=== PATIENT | male | born 1965 | race Caucasian/White ===

== ENCOUNTER 2018-02-07 05:29 | Inpatient (IN) | payer OTHER ==
[2018-01-25 16:10] LABS: BASOPHILS % (AUTO) 1.4 % (0.0-2.0); EOSINOPHILS % (AUTO) 1.9 % (0.0-3.0); HEMATOCRIT 45.5 % (42.0-52.0); HEMOGLOBIN 15.7 G/DL (14.2-18.0); LYMPHOCYTES % (AUTO) 35.4 % (20.0-45.0); MEAN CORPUSCULAR VOLUME 87 FL (80-99); MONOCYTES % (AUTO) 8.7 % (1.0-10.0); NEUTROPHILS % (AUTO) 52.6 % (45.0-75.0); PLATELET COUNT 231 K/UL (150-450); RED BLOOD COUNT 5.21 M/UL (4.70-6.10); RED CELL DISTRIBUTION WIDTH 11.6 % (11.6-14.8); WHITE BLOOD COUNT 6.1 K/UL (4.8-10.8)
[2018-01-25 16:11] LABS: APPEARANCE,URINE CLEAR; BILIRUBIN, URINE NEGATIVE (NEGATIVE); COLOR,URINE PALE YELLOW; GLUCOSE, URINE (UA) NEGATIVE (NEGATIVE); KETONES,URINE NEGATIVE (NEGATIVE); LEUKOCYTE ESTERASE ,URINE NEGATIVE (NEGATIVE); NITRITE,URINE NEGATIVE (NEGATIVE); PH,URINE 5 (4.5-8.0); PROTEIN,URINE NEGATIVE (NEGATIVE); UROBILINOGEN,URINE NORMAL MG/DL (0.0-1.0)
[2018-01-25 16:28] LABS: ALANINE AMINOTRANSFERASE 35 U/L (12-78); ALBUMIN 4.4 G/DL (3.4-5.0); ALBUMIN/GLOBULIN RATIO 1.2 (1.0-2.7); ALKALINE PHOSPHATASE 59 U/L (46-116); ANION GAP 6 mmol/L (5-15); ASPARTATE AMINO TRANSFERASE 22 U/L (15-37); BILIRUBIN,TOTAL 0.6 MG/DL (0.2-1.0); BLOOD UREA NITROGEN 13 mg/dL (7-18); CALCIUM 9.4 MG/DL (8.5-10.1); CARBON DIOXIDE 30 MMOL/L (21-32); CHLORIDE 102 MMOL/L (98-107); CREATININE 1.1 MG/DL (0.55-1.30); PHOSPHORUS 3.7 MG/DL (2.5-4.9); SODIUM 138 MMOL/L (136-145)
--- NOTE | 2018-01-25 16:39 | Diagnostic Imaging Report ---
Indication: Cough Comparison: None 2 views of the chest obtained. Findings: Minimal left basal atelectasis versus scarring demonstrated. Cardiomediastinal silhouette and pulmonary vascularity are within normal limits for age. The diaphragmatic contour is smooth and costophrenic angles are sharp. No pleural effusions are identified. The bones are unremarkable. Impression: No acute disease
[2018-02-07] VITALS (12 sets, daily range): BP systolic 103–131; BP diastolic 55–81
[~2018-02-07] VITALS: Ht 182.9 cm; Wt 111.6 kg
[~2018-02-07 05:29] MED LIST: ALBUTEROL SULF8.5 GM INH; GABAPENTIN400 MG ORAL; LUNESTA1 MG ORAL; OXYCONTIN10 MG ORAL; ROBAXIN-750750 MG PO; SINGULAIR10 MG ORAL; XANAX1 MG ORAL
[2018-02-07] MEDS ORDERED: ceFAZolin sod 2 GM in D5W 110 ML IVPB ONE (07:00)
[2018-02-07] MEDS ORDERED: Zemuron 50mg/5ml Inj IV ONE (07:10)
[2018-02-07] MEDS ORDERED: Succinylcholine 20mg/ml 10ml vial ONE (07:10)
[2018-02-07] MEDS ORDERED: fentaNYL 100 mcg/2 mL IV ONE ×2 (07:23→09:00)
[2018-02-07] MEDS ORDERED: Midazolam 2mg/2ml Inj ONE (07:24)
[2018-02-07] MEDS ORDERED: Lidocaine 1% MPF 10mg/ml 5ml ONE (07:26)
[2018-02-07] MEDS ORDERED: Thrombin 5000 units spray kit TOPIC ONE (07:32)
[2018-02-07] MEDS ORDERED: EPINEPHrine 1mg/1ml Amp ONE (07:32)
[2018-02-07] MEDS ORDERED: Thrombin 5000 units TOPIC ONE (07:33)
[2018-02-07] MEDS ORDERED: Gelfoam Absorbable 1gm powder pkt TOPIC ONE (07:33)
[2018-02-07] MEDS ORDERED: Bupivacaine 0.5% Inj 30 ml vial INJ ONE (07:33)
[2018-02-07] MEDS ORDERED: Bacitracin 50000 Units Vial ONE (07:34)
--- NOTE | 2018-02-07 07:49 | Pre-Procedure Note/Attestation ---
Pre-Procedure Note/Attestation Complete Prior to Procedure Procedure Narrative: L34 XLIF, PSF Indications for Procedure Pre-Operative Diagnosis: SP l45S1 fusion, discopathy L34 Attestation I attest that I discussed the nature of the procedure; its benefits; risks and complications; and alternatives (and the risks and benefits of such alternatives ), prior to the procedure, with the patient (or the patient's legal corporate sales representative). I attest that, if there was a reasonable possibility of needing a blood transfusion, the patient (or the patient's legal corporate sales representative) was given the [facility] standardized written summary, pursuant to the [place] Blood Safety Act ([place] Health and Safety Code # 1645, as amended). I attest that I re-evaluated the patient just prior to the surgery and that there has been no change in the patient's H&P, except as documented below: KEN PIMENTEL Feb 07, 2018 07:49
--- NOTE | 2018-02-07 08:14 | Anethesia Preoperative Eval ---
Anesthesia Pre-op PMH/ROS General Date of Evaluation: Feb 07, 2018 Time of Evaluation: 07:50 Anesthesiologist: Lizabeth ASA Score: ASA 2 Mallampati Score Class I : Soft palate, uvula, fauces, pillars visible Class II: Soft palate, uvula, fauces visible Class III: Soft palate, base of uvula visible Class IV: Only hard plate visible Mallampati Classification: Class II Surgeon: Mayito Diagnosis: Lumbar radiculopathy Surgical Procedure: Lateral spinal fusion at L3-L4 hardwear removal at L4to S1 Anesthesia History: none Family History: no anesthesia problems Allergies: Coded Allergies: AVOCADO (Verified Adverse Reaction, Intermediate, throat closes up, ) JEANNIE (Verified Adverse Reaction, Intermediate, throat closes up, 02/07/18) Past Medical History Cardiovascular: Denies: HTN, CAD, [place], valve dz, arrhythmia, other Pulmonary: Denies: asthma, COPD, NICK, other Gastrointestinal/Genitourinary: Reports: GERD - mild; Denies: CRI, ESRD, other Neurologic/Psychiatric: Reports: other - chronic pain; Denies: dementia, CVA, depression/anxiety, TIA Endocrine: Denies: DM, hypothyroidism, steroids, other HEENT: Denies: cataract (L), cataract (R), glaucoma, KOTLIK (L), KOTLIK (R), other Hematology/Immune: Denies: anemia, DVT, bleeding disorder, other Other: other - overweight PMH Narrative: as above PSxH Narrative: Lumbar spinal fusion, hernia repair Anesthesia Pre-op Phys. Exam Physician Exam Last Vital Signs Date Time Temp Pulse Resp B/P (MAP) Pulse Ox O2 Delivery O2 Flow Rate FiO2 02/07/18 06:05 97.8 67 18 131/81 98 Room Air 97.8 Constitutional: NAD Neurologic: CN 2-12 intact Cardiovascular: RRR, no M/R/G Respiratory: CTA Gastrointestinal: S/NT/ND Airway Exam Mallampati Score: Class II MO: full Neck: flexible ROM: full Teeth: intact Dentures: no upper, no lower Anesthesia Pre-op A/P Labs see chart Accucheck 80 at admission Studies Pre-op Studies: EKG - NSR, CXR - WNL Risk Assessment & Plan Assessment: ASA 2 Plan: GA with ETT Lateral and prone position neuromonitoring. Status Change Before Surgery: No Pre-Antibiotics Drug: Ancef 2gr Given Within 1 Hr of Incision: Yes Time Given: 08:50 Addy Barone MD Feb 07, 2018 08:14
[2018-02-07] MEDS ORDERED: Acetaminophen (Non formulary) 100 ML IV SCH (09:45)
[2018-02-07] MEDS ORDERED: Propofol 200mg/20ml IV ONE ×7 (10:49→16:03)
[2018-02-07] MEDS ORDERED: Morphine Sulfate 10mg/ml Inj ONE (12:22)
[2018-02-07] MEDS ORDERED: Ketorolac 30mg Inj ONE (12:24)
[2018-02-07] MEDS ORDERED: Sodium Chloride 10ml vial INJ ONE (12:24)
[2018-02-07] MEDS ORDERED: Glycopyrrolate 0.2mg/ml 1ml Vial ONE (12:24)
[2018-02-07] MEDS ORDERED: Neostigmine 1mg/ml 10ml Inj ONE (12:25)
[2018-02-07] MEDS ORDERED: Heparin 5000 units/ml inj ONE (13:03)
[2018-02-07] MEDS ORDERED: LR 1000ml 1,000 ML IVLG SCH (13:26)
[2018-02-07] MEDS ORDERED: Ketorolac 30mg Inj IV PRN (13:30)
[2018-02-07] MEDS ORDERED: Midazolam 2mg/2ml Inj IVP PRN ×2 (13:30→18:15)
[2018-02-07] MEDS ORDERED: Naloxone 0.4mg/ml Inj IVP PRN (13:30)
[2018-02-07] MEDS ORDERED: fentaNYL 100 mcg/2 mL IV PRN ×2 (13:30→18:30)
[2018-02-07] MEDS ORDERED: DiphenhydrAMINE 50mg/ml Inj IVP PRN ×3 (13:30→18:15)
[2018-02-07] MEDS ORDERED: Meperidine 50mg/ml Inj(FOR RIGORS ONLY) IV PRN ×2 (13:30→18:15)
--- NOTE | 2018-02-07 13:30 | Operative Note - Dictated ---
DATE OF OPERATION: 02/07/2018 SURGEONS: 1. Bear Bella M.D. (for the approach). 2. Viraj Edmond M.D. (for the spine procedure). ANESTHESIOLOGIST: Addy Barone M.D. ANESTHESIA: General endotracheal. PREOPERATIVE DIAGNOSIS: Disc disease L3-L4. POSTOPERATIVE DIAGNOSIS: Disc disease L3-L4. OPERATIVE PROCEDURE: 1. Muscle sparing extraperitoneal approach for extreme lateral interbody fusion of L3-L4 (1 interspace). 2. Transpsoas exposure of the lateral surface of the spine at L3-L4. INFORMED CONSENT: The procedure of access for extreme lateral interbody fusion was explained in detail to the patient preoperatively via the phone and repeated in the preoperative holding area on the day of surgery. The risks including hemorrhage, infection, nerve injury, visceral injury and pneumothorax were explained in detail. The patient stated that he understood the procedure, its rationale and risks. He had no further questions and accepted the procedures outlined above. Background information, indications for surgery, description of operative findings and specimens removed will be contained in Dr. Edmond's operative report. OPERATIVE FINDINGS FOR THE APPROACH: All retroperitoneal structures were normal. OPERATIVE PROCEDURE: The patient was brought to the operating room in stable condition. Monitoring was instituted with arterial line, ECG, O2 saturation monitor and blood pressure cuff. A left foot pulse oximeter was placed. The patient was induced anesthesia without any difficulty. The patient was placed in the right lateral decubitus position for a left lateral flank incision. The patient was prepared and draped in sterile fashion. Under fluoroscopic guidance, the level for the incision was marked on the skin at the L3-L4 level. A transverse incision was made at the appropriate level. The subcutaneous tissue was divided using electrocautery. The external oblique fascia was divided using the electrocautery. The external oblique muscle was bluntly in the direction of its fibers, sparing the muscle. In similar fashion, the muscle fibers of the internal oblique muscle were in the direction of the fibers. The transverse abdominis was mostly transversalis fascia, which was in the direction of its fibers. Once the transversalis fascia was incised, the extraperitoneal fat was identified and the extraperitoneal space was entered. At the transversalis level, the ilioinguinal and iliohypogastric nerves were visualized and spared. Using blunt dissection, the quadratus lumborum muscle was palpated. The psoas muscle was then identified. Once this dissection was completed and the psoas muscle was identified, the L3-L4 disc was visualized by the psoas muscle in the direction of the fibers. Care was taken to identify only the disc and avoid any nerves. Once the disc was identified, a dilator was placed and its position confirmed on fluoroscopy. Neuromonitoring was accomplished to assure that there was no stimulation of any nerves in proximity to the disc. Once it was determined that it was safe, a K-wire was deployed. Serial dilators were placed with continued neuromonitoring. The retractor system was deployed over the dilators. The appropriate disc level and A-P position of the retractor were determined by fluoroscopy. With the retractor system in position, Dr. Edmond proceeded to perform the diskectomy, partial vertebrectomy, and fusion using the appropriate technique and hardware. The retractor system was then removed. During removal of the retractor system, direct visual inspection was carried out to assure hemostasis. With the discectomy, partial vertebrectomy, and fusion completed, the wound was irrigated with antibiotic solution. One last inspection was carried out to assure that all structures were normal and that there was good hemostasis. With the retractor system removed, the peritoneum was allowed to come to its normal anatomic position. The muscle layers came back to their normal anatomic position. The muscle layers were approximated with a continuous suture of #1 PDS II. The external oblique fascia was closed with a continuous suture of #0 PDS II. The subcutaneous tissue and skin were closed with a continuous suture of 2-0 Vicryl. Steri-Strips and a sterile dressing were applied. Estimated blood loss from the procedure was minimal and estimated at less than 15 mL. Final sponge, needle, and instrument counts were correct x2. Manual and visual sweeps were correct. The patient remained in the operating room, under anesthesia, in stable condition to be placed in the prone position for placement of posterior hardware. Dorsalis pedis and posterior tibial pulses were +2 in both feet. The pulse oximeter showed 100% oxygen saturation with a triphasic waveform on the left foot monitor consistent with the preoperative baseline. Bear Bella M.D. DR: SINGH JOB#: [id number] CC: Viraj Edmond M.D.; Fax#: [phone] MTDD
[2018-02-07] MEDS ORDERED: Rate Change PCA 1 Each MISC PRN (14:30)
[2018-02-07] MEDS ORDERED: LORazepam 1mg tab ORAL PRN (14:30)
[2018-02-07] MEDS ORDERED: Vancomycin 1gm inj IVPB ONE (15:46)
[2018-02-07] MEDS ORDERED: Milk of Magnesia 30ml Ud ORAL PRN (16:30)
--- NOTE | 2018-02-07 16:46 | Brief Operative Note ---
Immediate Post Operative Note Operative Note Pre-op Diagnosis: SP l45S1 fusion, discopathy L34 Procedure: XLIF L34 PSF L34, Instrumentation L345, removal of hardware L45S1, Decompression L234 Post-op Diagnosis: same as pre-op Findings: consistent w/pre-op dx studies Surgeon: philomena Junior Project Manager: marcelo GUY Additional Surgeons: Bear carrillo Anesthesiologist: chely Anesthesia: general Specimen: none Complications: none Condition: stable Fluids: 2L Estimated Blood Loss: volume - 300 Drains: hemovac Implant(s) used?: Yes - Spinal element screws and xlif cage KEN PIMENTEL Feb 07, 2018 16:46
--- NOTE | 2018-02-07 16:57 | Diagnostic Imaging Report ---
Indication: Back pain, intraoperative Technique: Intraoperative images Comparison: none Findings: Intraoperative images taken after hardware removal, demonstrate a disc spacer at L3-4, pedicle screws bridging L3-4 the right, and bridging L3 and L5 on the left Impression: Intraoperative imaging, as described
[2018-02-07] MEDS: PCA Morphine 1mg/ml 30 ML IV PRN ×2 (18:33→23:23)
[2018-02-07] MEDS ORDERED: PCA shift volume MISC SCH (19:00)
--- NOTE | 2018-02-07 19:00 | Operative Note - Dictated ---
DATE OF OPERATION: 02/07/2018 SURGEON: Viraj Edmond M.D. PREOPERATIVE DIAGNOSES: 1. Status post prior anterior posterior fusion, L4 through S1. 2. Status post XLIF procedure performed earlier in the day as a staged procedure. 3. L2-L3 and L3-4 spinal stenosis. 4. Instability at L3-L4. 5. Status post prior laminectomy at multiple levels with laminal foraminotomies at L3-L4 and laminectomy at L4-L5 and L5-S1. OPERATIVE PROCEDURE IN DETAIL: 1. Posterior spinal fusion, L3-L4. 2. Bilateral papo-laminoforaminotomies at L2 and superior portion of L3. 3. Bilateral redo L3-L4 laminectomy. 4. Pedicle screw fixation, L3-L4, left side and L3-L5, right side (L4 pedicle screw was cortically breached medially, and therefore, it was aborted). 5. Removal of hardware at L4, L5 and S1. 6. Inspection of fusion L4, L5 and S1. 7. Use of fluoroscopy. 8. Neurodiagnostic monitoring with pedicle screw stimulation. 9. Use of operating microscope. INDICATIONS: The patient is very pleasant gentleman, status post spinal fusion L4, L5, and S1, developed adjacent level disease at L3-L4 with stenosis L2-L3 and L3-L4. Surgical options were discussed. He elected to proceed with staged anterior-posterior fusion, L3-L4, with decompression L2, L3, L4 redo. The patient elected to proceed. RISK NOTE: The patient was explained in detail the risks and benefits of surgery to include, but not be limited to those of bleeding, infection, damage to nerves, vessels, tendons, anesthetic risk, allergic reaction, aspiration, and possibly . The patient understood and wished to proceed. INTRAOPERATIVE FINDINGS: Medialized screw placement at L4 right side with pedicle screw stimulation at 1 milliamp. OPERATIVE PROCEDURE IN DETAIL: Under benefits of general anesthesia, the patient was turned prone onto the radiolucent Michael frame. Back was prepped and draped in the usual sterile fashion. All bony prominences were well padded. The skin was infiltrated with Marcaine with epinephrine. Prior incision was reopened as well as extended an additional inch and a half cephalad. Subperiosteal dissection at L2-L3 and partially at L3-L4 was performed. An oblique exposure of the hardware at L4, L5 and S1 was performed bilaterally. Extensive scarring was encountered. At this point, once the lateral hardware was identified with a combination of curettes, pituitaries, rongeurs and Bovie dissection, we were able to skeletonize all the hardware. The locking caps were all systematically removed. The cross connectors were loosened and the rods and cross connectors were systematically removed. At this point, we were able to remove all the screws at L4, L5 and S1 bilaterally. Extensive amount of time was required due to the significant scarring and need for soft tissue manipulation. At this point, once all screws were removed, the pedicle hole at L4 on the right side was probed and there was noted to be medial cortical breach, and therefore, was elected not to place a screw at this level. Please note that prior to screw removal, a thorough inspection of the fusion was performed and stress testing of the fusion demonstrated solid fusion. At this juncture, the pedicle screws were placed on the right at L5 and on the left at L4 through the prior screw holes. Pedicle stimulation was well above 20 milliamps. These were 6.5 x 50 mm screws. At this point, new screws were then placed at L3 using standard technique using both anatomic and radiographic landmarks. Once the screws were drilled, probed, tapped, and finally the appropriate sized spinal element screws were placed. An appropriate size humera was placed spanning the screw heads at L3-L4 on the left and L3-L5 on the right. At this point, the locking caps were tightened and torqued to the appropriate level. Compression of the construct was performed in order to obtain some lordosis. Once satisfied with the hardware fixation, fluoroscopy was removed. Operating microscope was brought into place and a thorough bilateral redo laminectomy of L3 was performed down to the area of the L4 pedicles. Extensive scarring was encountered in this area. Partial midline spinous process resection was removed. The decompression was performed using standard technique of using a high-speed drill, curved curette, and Kerrison punches. Once satisfied with this decompression, FloSeal was applied. Attention was then turned to the L2-L3 level and a hemilaminectomy was performed of the inferior two-thirds of L2, superior one-third of L3 as well as resection of the ligamentum flavum and medial facet joint. Excellent decompression was achieved. This procedure was then identically reproduced on the right side at L2 and L3. Once satisfied with the decompression, copious irrigation was performed. FloSeal was applied to all bony edges. Vancomycin powder 1 g was placed deep to the fascia. Subfascial drain medium Hemovac was placed. Fascia was repaired using #1 Vicryl. Subcutaneous closure using 2-0 Vicryl. Dermabond and sterile dressing was applied. The patient overall tolerated the procedure well and was awaiting extubation at this time. [facility] Joanna Edmond DR: PABLO JOB#: [id number] CC:
--- NOTE | 2018-02-07 19:03 | Immediate Post-Op Evaluation ---
Immediate Post-Op Evalulation Immediate Post-Op Evalulation Procedure: Lateral L3-L4 discectomy-fusion, revision of posterior lumbar fusion at L4- Date of Evaluation: Feb 07, 2018 Time of Evaluation: 17:08 IV Fluids: 2200 Blood Products: none Estimated Blood Loss: 300 Urinary Output: 500 Blood Pressure Systolic: 108 Blood Pressure Diastolic: 72 Pulse Rate: 68 Respiratory Rate: 20 O2 Sat by Pulse Oximetry: 98 Temperature (Fahrenheit): 98.7 Pain Score (1-10): 2 Nausea: No Vomiting: No Complications none Patient Status: reacts, patent, extubated, none Hydration Status: adequate Addy Barone MD Feb 07, 2018 19:03
[2018-02-07] MEDS ORDERED: PCA Education Pamphlet MISC ONE (22:00)
[2018-02-07] MEDS ORDERED: ceFAZolin sod 1 GM in D5W 110 ML IV SCH (22:00)
--- NOTE | 2018-02-07 22:15 | Operative Note - Dictated ---
DATE OF OPERATION: 02/07/2018 SURGEON: Viraj Edmond M.D. VASCULAR ACCESS SURGEON: Bear Bella M.D. AUTHORIZATION NURSE: Fabricio Hinkle PA-C. ANESTHESIOLOGIST: Addy Barone M.D. ANESTHESIA TYPE: General endotracheal anesthesia. PREOPERATIVE DIAGNOSES: 1. Status post prior spinal fusion L4-L5 and L5-S1. 2. 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 POSTOPERATIVE DIAGNOSES: 1. Status post prior spinal fusion L4-L5 and L5-S1. 2. 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 PROCEDURES: 1. Far lateral extraforaminal interbody fusion L3-L4. 2. Placement of structural PEEK cage. 3. Use of BMP. 4. Use of allograft putty. 5. Neurodiagnostic monitoring. 6. Use of fluoroscopy. ESTIMATED BLOOD LOSS: Minimal. COMPLICATIONS: None. FINDINGS: Nerve root stimulation demonstrated that slightly more than anterior placement of cage was required as we were not able to be in the mid point of the vertebral body/disc space. INDICATIONS: The patient is a very pleasant 52-year-old gentleman with status post spinal fusion at L4-L5 and L5-S1. He had a large anular tear and subligamentous herniation at the L3-L4 level with left greater than right radiculopathic pain, also evidence of spinal stenosis at L2-L3 and L3-L4. Surgical options were discussed. Plan was to proceed with an extension of the fusion staged with a posterior fusion and two-level decompression. The patient understood and wished to proceed. RISK NOTE: The patient was explained in detail the risks and benefits of surgery to include, but not be limited to those of bleeding, infection, damage to nerves, vessels, tendons, anesthetic risk, allergic reaction, aspiration, and possibly . The patient understood and wished to proceed. OPERATIVE PROCEDURE IN DETAIL: The patient was taken to the operating suite. After Rosado catheter was placed, he was turned right side down lateral decubitus onto a table and was positioned with all bony prominences well padded. The vascular access team then proceeded to proceed with a left-sided oblique incision and the exposure will be dictated separately by Dr. Bella. At this point, when the spine surgical team came in, the retractors had already been placed and a guidewire was placed after the trocars and dilators were tested with the neurostimulator to avoid injury to the nerve roots. At this point, via exposure, a scalpel was used to incise the anulus laterally. Endplate preparation was performed. Straight angled and down pushing curettes were used to mobilize the disk space as well as rotating vamsi. This allowed for debulking of the disk space. A backhoe endplate dissector as well as rasp curette was used to prepare the endplates. The contralateral anulus was also incised with a Tsai. At this point, once satisfied with the endplate preparation and decompression, decision was made to place the trial implant. An 18 mm wide implant was chosen by 50 mm in size and 10 mm in height. Once the trial was removed, the implant with coated ends were then centrally packed with small BMP as well as allograft putty (Signafuse bone graft). At this point, once the implant was inserted and noted to be in good position on both AP and lateral projections, decision was made to close. Closure will be dictated separately by Dr. Bella. Please note that the graft is slightly more anterior than normally placed, however, this was due to the location of the nerve roots, which made it dangerous for potential neuro palsy. At this point, sponge and needle counts were correct. Sterile dressing was applied and the patient was awaiting posterior procedure. Viraj Edmond M.D. DR: RADHA JOB#: [id number] CC: KORI
[2018-02-07] MEDS: Docusate 100mg cap ORAL SCH (22:40)
[2018-02-07] MEDS: D5 1/2NS 1,000 ML IV SCH (22:41)
[2018-02-07] MEDS: ceFAZolin sod 1 GM in D5W 110 ML IV SCH (23:16)
[2018-02-08] MEDS ORDERED: Hydromorphone 0.5mg/0.5ml inj SUBQ ONE (00:02)
[2018-02-08] MEDS ORDERED: oxyCONTIN 10mg tab ORAL ONE (00:02)
[2018-02-08] MEDS ORDERED: oxyCODONE 5mg IR tab ORAL PRN (00:15)
[2018-02-08] MEDS ORDERED: Chloraseptic Spray 20mL Bottle ORAL PRN (00:15)
[2018-02-08] MEDS ORDERED: Magnesium Citrate Liq Btl ORAL PRN (00:15)
[2018-02-08] MEDS: oxyCONTIN 10mg tab ORAL SCH ×3 (00:15→16:39)
[2018-02-08 00:39] VITALS: BP 105/58
[2018-02-08 04:21] VITALS: BP 119/60
[2018-02-08] MEDS: ceFAZolin sod 1 GM in D5W 110 ML IV SCH (06:06)
--- NOTE | 2018-02-08 06:15 | Consultation ---
DATE OF CONSULTATION: 02/07/2018 CONSULTING PHYSICIAN: Hiram Barber M.D. REFERRING PHYSICIAN: Viraj Edmond M.D. REASON FOR CONSULTATION: Acute pain consult. HISTORY OF PRESENT ILLNESS: Dear Dr. Viraj Edmond, Thank you kindly for consulting me to evaluate and render an opinion as to how to proceed in the management of the patient's acute postoperative lumbar spine pain after revision lumbar spine fusion surgery with instrumentation today. The patient is a pleasant 52-year-old gentleman, who re-injured his lumbar spine. He has been seeing Dr. Klein, outpatient pain management for the past six months. The outpatient pain doctor has been prescribing escalating doses of oxycodone including Percocet and a long-acting extended release OxyContin. The patient has had chronic lumbar spine pain, and with his increasing narcotic usage, the patient complained of severe postoperative pain after his revision lumbar spine surgery today. The patient has chronic lumbar spine pain, on chronic opioid usage, often had difficulties with pain control postoperatively. Such was the case with the patient, today you consulted me to help with this patient's pain control. I saw the patient at the bedside. I performed detailed history and physical examination. I discussed the case with the hospital pharmacist along with yourself, Dr. Edmond and the nurse, RITA Rose. I spent over 75 minutes in consultation with an additional 30 minutes in medical record review. Multiple records were reviewed and the patient's medical chart including utilization review and surgical authorization by the insurance carrier, [employer] dated 11/16/2017 authorizing multilevel revision lumbar spine fusion surgery with instrumentation as authorized. Further record review included preoperative history physical by Dr. Cooper on 01/25/2018 along with diagnostic testing, laboratory studies, 12-lead EKG, and chest x-ray. Further record review included multiple records from today's date of surgery, 02/07/2018 at [facility] including consent for surgical treatment, consent for anesthesia, consent for blood products, medication administration record, medication reconciliation order form, PACU record, PACU orders, anesthesia record, pre and post anesthesia evaluation record, postoperative spine surgery orders, postoperative surgery report by Dr. Edmond, implant log, guidelines for prophylactic antibiotics, guidelines for DVT prophylaxis, Contreras-Mcgill diagram, cognitive disability, initial nursing assessment, and 24-hour medical surgical flow sheet. PAST MEDICAL HISTORY: 1. Acute postoperative lumbar spine pain, status post revision lumbar spine fusion surgery with instrumentation multiple level by Dr. Viraj Edmond in 01/2018. 2. Work-related injury. 3. Chronic lumbar spine pain. 4. Benzodiazepine dependence. 5. Chronic arm pain. 6. Asthma. 7. Opioid dependence. 8. Moderate obesity. PAST SURGICAL HISTORY: 1. Previous lumbar spine fusion surgery multiple level in 2001. 2. Left arm metal removal. 3. Left thumb cyst removal. 4. Umbilical hernia repair. FAMILY HISTORY: Parkinson's, paternal. SOCIAL HISTORY: The patient accompanied at the bedside by his . The patient denies tobacco, alcohol, or illicit drug use. ALLERGIES: No known drug allergies. MEDICATIONS: At home, Xanax 1 mg three times a day p.r.n., gabapentin 400 mg twice a day, Robaxin 750 mg rarely, Singulair 10 mg daily, multivitamins daily, oxycodone 10/325 four to five tablets per day, and OxyContin 10 mg extended release q.12 hours. REVIEW OF SYSTEMS: Per Dr. Cooper. PHYSICAL EXAMINATION: VITAL SIGNS: Age 52, height 5 feet 11 inches, weight 236 pounds, body mass index 33. GENERAL: He has a cast in place. Alert and oriented x3, moving all extremities x4. This is a 52-year-old gentleman, who appears his stated age. EXTREMITIES: Moving all extremities x4. A 5/5 dorsiflexion and 5/5 plantar flexion in the bilateral lower extremities. CHEST: Clear to auscultation. HEART: Regular rate and rhythm. BACK: Lumbar spine with significant pain with any movement. Log-rolling, straight leg raising deferred secondary to pain. NEUROLOGIC: Detailed neurologic exam per Dr. Edmond. Rosado catheter in place. LABORATORY AND DIAGNOSTIC DATA: Diagnostic testing shows 12-lead EKG, heart rate 58, no evidence for acute cardiac ischemia. Preoperative chest x-ray showed no acute cardiopulmonary disease. Laboratory studies from 01/25/2018 shows white count 6, hematocrit 46, and platelets 231. INR 1.0, PTT 27. Sodium 138, potassium 4.0, chloride 102, bicarbonate 30, BUN 13, creatinine 1.1, glucose 123, calcium 9.4, phosphorus 3.7, magnesium 2.3. Total bilirubin 0.6, AST 22, ALT 35, total protein 8.2, and alkaline phosphatase 59. IMPRESSION: 1. Acute postoperative lumbar spine pain, status post revision lumbar spine fusion surgery with instrumentation at multiple level by Dr. Viraj Edmond in 01/2018. 2. Work-related injury. 3. Chronic lumbar spine pain. 4. Benzodiazepine dependence. 5. Chronic arm pain. 6. Asthma. 7. Opioid dependence. 8. Moderate obesity. The patient follows up with an outpatient pain doctor, Dr. Klein on a monthly basis. He will see Dr. Klein again in two weeks. Dr. Klein has had this patient on OxyContin controlled release 10 mg q.12 hours for the past six weeks. The patient also has been on OxyContin 10 mg four times a day for many months. He is benzodiazepine dependent using Xanax 1 mg tablets up to 3 times a day p.r.n. He states that the Robaxin he uses only intermittently. The patient was started on a FURNITURE FINISHER APPRENTICE morphine postoperatively in the recovery room. The patient does state that his pain was severe and I have changed the FURNITURE FINISHER APPRENTICE settings so that he will have a 2 mg demand dose. I have extended the lockout to 12 mg and I will start him on around the clock OxyContin controlled release at least 10 mg. The patient had been using 10 mg every 12 hours. I will increase the frequency to every eight hours continuously. I have also increased the breakthrough dose of oxycodone from 10 mg to 20 mg, which I have made available every three hours p.r.n. for moderate breakthrough pain. I have added a breakthrough dose of Dilaudid 1 mg subcutaneously, which I dosed every three hours. I would hold off on using separate muscle relaxants at this time and just use Xanax for anxiety or spasm as he already is on multi-modal combinations of narcotics for analgesia. I will place the patient on Protonix 40 mg daily for GI ulcer prophylaxis along with p.r.n. dose of Mylanta 30 mL p.r.n. for any GERD symptom exacerbation. I have ordered Zofran 4 mg intravenously every four hours p.r.n. as a nausea agent. I will empirically place the patient on Flomax 0.1 mg daily to help reduce the risk for urinary retention issues while on this high dose narcotics. The patient does use Neurontin 400 mg twice a day for his arm pain, which I will restart. I have added Benadryl 25 mg q.6 hours in case of any itching complaints. I have ordered Fioricet one tablet orally every eight hours in case of any headache symptoms. Dr. Edmond will follow with the patient's Hemovac drain output. I have ordered incentive spirometer to encourage good pulmonary toilet. The patient has sequential compression devices in place for DVT prophylaxis. Hiram Barber M.D. DR: VALERIA JOB#: [id number] CC:
[2018-02-08 07:12] LABS: ANION GAP 6 mmol/L (5-15); BLOOD UREA NITROGEN 16 mg/dL (7-18); CALCIUM 8.4 MG/DL (8.5-10.1); CARBON DIOXIDE 29 MMOL/L (21-32); CHLORIDE 105 MMOL/L (98-107); CREATININE 1.3 MG/DL (0.55-1.30); POTASSIUM 3.8 MMOL/L (3.5-5.1); SODIUM 140 MMOL/L (136-145)
[2018-02-08 07:40] LABS: BASOPHILS % (AUTO) 0.5 % (0.0-2.0); EOSINOPHILS % (AUTO) 0.4 % (0.0-3.0); HEMATOCRIT 37.9 % (42.0-52.0); HEMOGLOBIN 12.8 G/DL (14.2-18.0); LYMPHOCYTES % (AUTO) 26.5 % (20.0-45.0); MEAN CORPUSCULAR VOLUME 89 FL (80-99); MONOCYTES % (AUTO) 11.7 % (1.0-10.0); NEUTROPHILS % (AUTO) 60.9 % (45.0-75.0); PLATELET COUNT 184 K/UL (150-450); RED BLOOD COUNT 4.26 M/UL (4.70-6.10); RED CELL DISTRIBUTION WIDTH 11.7 % (11.6-14.8); WHITE BLOOD COUNT 8.6 K/UL (4.8-10.8)
[2018-02-08] MEDS ORDERED: LR 1000ml ONE (08:00)
[2018-02-08] MEDS ORDERED: NS Irrig 1000ml ONE (08:00)
[2018-02-08] MEDS ORDERED: Sterile Water Irrig 1000ml IRRIG ONE (08:00)
[2018-02-08] MEDS: D5 1/2NS 1,000 ML IV SCH ×2 (08:40→16:30)
[2018-02-08] MEDS: Docusate 100mg cap ORAL SCH (08:40)
[2018-02-08 08:48] VITALS: BP 122/75
[2018-02-08] MEDS ORDERED: Docusate 100mg/10ml Liq NG SCH (09:00)
[2018-02-08] MEDS ORDERED: Tamsulosin 0.4mg cap ORAL SCH (09:00)
--- NOTE | 2018-02-08 09:32 | 48 Hour Post Anesthesia Eval ---
Post Anesthesia Evaluation Procedure: Lateral L3-L4 discectomy-fusion, revision of posterior lumbar fusion at L4- Date of Evaluation: Feb 08, 2018 Time of Evaluation: 09:31 Blood Pressure Systolic: 132 0: 74 Pulse Rate: 68 Respiratory Rate: 20 Temperature (Fahrenheit): 97.5 O2 Sat by Pulse Oximetry: 98 Airway: patent Nausea: No Vomiting: No Pain Intensity: 4 Hydration Status: adequate Cardiopulmonary Status: stable Mental Status/LOC: patient returned to baseline Follow-up Care/Observations: n/a Post-Anesthesia Complications: none Follow-up care needed: N/A Addy Barone MD Feb 08, 2018 09:32
--- NOTE | 2018-02-08 09:37 | Orthopedic Spine Progress Note ---
Ortho Spine - Progress Note Subjective Symptoms: c/o post-op back pain, improved - as compared to pre-op Objective Vital Signs: Last 24 Hour Vital Signs Date Time Temp Pulse Resp B/P (MAP) Pulse Ox O2 Delivery O2 Flow Rate FiO2 02/08/18 09:32 207.5 68 20 98 02/08/18 08:48 98.6 69 20 122/75 99 98.6 02/08/18 08:40 97.8 02/08/18 04:21 97.8 59 20 119/60 98 97.8 02/08/18 04:00 18 02/08/18 00:39 97.3 60 19 105/58 98 97.3 02/08/18 00:00 18 02/07/18 20:00 97.7 66 19 108/63 98 97.7 02/07/18 19:37 97.6 70 20 122/62 98 Nasal Cannula 3 97.6 02/07/18 19:03 209.7 68 20 98 02/07/18 19:00 18 02/07/18 18:50 97.6 71 16 122/63 100 Nasal Cannula 3 97.6 02/07/18 18:45 17 02/07/18 18:35 15 02/07/18 18:33 97.6 02/07/18 18:33 15 02/07/18 18:29 97.4 02/07/18 18:25 97.7 75 17 119/60 97 Nasal Cannula 3 97.7 02/07/18 18:15 69 18 122/72 98 Nasal Cannula 3.0 02/07/18 18:03 97.2 02/07/18 18:03 97.2 02/07/18 18:03 97.2 02/07/18 18:00 77 15 115/76 98 Nasal Cannula 3.0 02/07/18 17:45 73 18 120/65 98 Nasal Cannula 3.0 02/07/18 17:33 97.5 02/07/18 17:30 75 20 110/66 98 Simple Mask 6 02/07/18 17:20 87 18 108/64 98 Simple Mask 6 02/07/18 17:10 85 15 113/65 98 Simple Mask 6 02/07/18 17:02 97.8 96 20 103/55 98 Simple Mask 6 97.8 I&O: Intake and Output 02/07/18 02/08/18 19:00 07:00 Intake Total 1530 ml Output Total 1350 ml Balance 180 ml Intake Oral 720 ml IV Total 810 ml Output Urine Total 1150 ml Drainage Total 200 ml # Voids 2 Wound: clean, intact Drains: hemovac Neuro Status: normal Assessment Procedure Performed: XLIF L34 PSF L34, Instrumentation L345, removal of hardware L45S1, Decompression L234 Plan Plan: PT, pain management, continue drain KEN PIMENTEL Feb 08, 2018 09:37
[2018-02-08] MEDS: PCA Morphine 1mg/ml 30 ML IV PRN ×2 (09:44→21:00)
[2018-02-08 11:43] VITALS: BP 119/65
[2018-02-08 16:09] VITALS: BP 121/73
[2018-02-08] MEDS: oxyCODONE 15mg IR tab ORAL PRN ×2 (18:48→21:53)
[2018-02-08] MEDS ORDERED: PCA shift volume MISC SCH (19:00)
[2018-02-08 20:00] VITALS: BP 131/72
[2018-02-08] MEDS: ALPRAZolam 0.5mg tab ORAL PRN (20:56)
--- NOTE | 2018-02-09 | Progress Note ---
DATE: 02/08/2018 ACUTE PAIN MANAGEMENT PHYSICIAN PROGRESS NOTE MEDICATIONS: Medication administration record reviewed. Medications include IV fluids, Neurontin, Protonix, Flomax, OxyContin, milk of magnesia, Xanax, Benadryl, Zofran, oxycodone, Mylanta, magnesium citrate, Catapres, Chloraseptic, Fioricet, Dilaudid, and morphine RESPOOLER. LABORATORY STUDIES: From this morning, 02/08/2018, shows white count of 9, hematocrit 38, and platelets 184. Sodium 140, potassium 3.8, chloride 105, bicarbonate 29, BUN 16, creatinine 1.3, glucose 103, and calcium 8.4. OBJECTIVE: VITAL SIGNS: Pain level 5/10 on the visual analog pain scale. Afebrile, pulse 73, respirations 20, blood pressure 121/73, and oxygen saturation 96% on room air. I saw the patient at the bedside with the nurse, Sara, and the patient's and daughter. Dr. Edmond evaluated the patient earlier this morning and decided to continue to monitor the output from the indwelling lumbar spine drain catheter. The patient is neurologically intact grossly from a motor standpoint. He has been ambulating greater than 100 feet with assistance. The patient does have lower extremity paresthesias, which did exist preoperatively. I did encourage the patient to be patient with these sensory deficits to allow postoperative swelling to recede. The patient denies any shortness of breath or chest pain. The patient has been using his RESPOOLER morphine to complement the scheduled OxyContin 10 mg, which I ordered every eight hours. This dose, which has increased from his preoperative frequency seems to be providing excellent baseline analgesia without adverse side effects. The patient has no nausea. He is tolerating advancing diet, though I would ask the nurse to place him on regular diet for breakfast in the morning. Incentive spirometer has been ordered to encourage good pulmonary toilet. Sequential compression pneumatic devices have been encouraged to be worn when in bed for DVT prophylaxis. I did explain to the patient that I would like to discontinue the RESPOOLER tomorrow morning. Therefore, he should begin working-in the p.r.n. medications, which will be oxycodone, Xanax, and subcutaneous Dilaudid. The patient already has a good supply of outpatient pain medications including OxyContin and Percocet. The patient will follow up with his outpatient pain doctor, Dr. Klein in several days for narcotic adjustments and refills. The Rosado catheter was removed and the patient has been voiding urine without difficulties. I will discontinue the Flomax, which was ordered by me earlier. We will continue the gabapentin for his arm pain. Overall, the patient is pleased with his progress and I believe the patient is advancing well quickly after his revision lumbar spine surgery. The patient does complain of discomfort along his upper abdomen, which is consistent with extended prone positioning on the rigid operating room table. The patient denies shortness of breath or chest pain. Hiram Barber M.D. DR: VALERIA JOB#: [id number] CC:
[2018-02-09] MEDS: oxyCONTIN 10mg tab ORAL SCH ×3 (00:15→17:10)
[2018-02-09 04:00] VITALS: BP 114/68
[2018-02-09] MEDS: oxyCODONE 15mg IR tab ORAL PRN ×3 (04:17→20:57)
[2018-02-09] MEDS: D5 1/2NS 1,000 ML IV SCH (04:28)
[2018-02-09] MEDS: ALPRAZolam 0.5mg tab ORAL PRN ×2 (05:46→21:06)
--- NOTE | 2018-02-09 09:13 | Orthopedic Spine Progress Note ---
Ortho Spine - Progress Note Subjective Symptoms: c/o post-op back pain, improved - as compared to pre-op Objective Vital Signs: Last 24 Hour Vital Signs Date Time Temp Pulse Resp B/P (MAP) Pulse Ox O2 Delivery O2 Flow Rate FiO2 02/09/18 08:47 99.5 02/09/18 05:58 18 02/09/18 04:00 18 02/09/18 04:00 99.5 90 18 114/68 97 Room Air 99.5 02/09/18 00:00 17 02/08/18 21:00 18 02/08/18 20:58 18 02/08/18 20:00 18 02/08/18 20:00 98.8 95 20 131/72 98 Room Air 98.8 02/08/18 16:39 97.2 02/08/18 16:09 97.2 73 20 121/73 96 97.2 02/08/18 16:00 18 02/08/18 12:00 18 02/08/18 11:43 98.2 92 20 119/65 98 98.2 02/08/18 10:14 97.2 02/08/18 10:00 18 02/08/18 09:44 97.5 02/08/18 09:32 207.5 68 20 98 I&O: Intake and Output 02/08/18 02/09/18 19:00 07:00 Intake Total 450 ml 170 ml Output Total 810 ml Balance 450 ml -640 ml Intake Oral 450 ml 120 ml IV Total 50 ml Output Urine Total 800 ml Drainage Total 10 ml Wound: clean, dry, intact Drains: hemovac Neuro Status: normal Assessment Procedure Performed: XLIF L34 PSF L34, Instrumentation L345, removal of hardware L45S1, Decompression L234 Plan Plan: PT, pain management, continue drain, discharge plan - ?in KEN Crabtree Feb 09, 2018 09:13
[2018-02-09] MEDS: Hydromorphone 0.5mg/0.5ml inj SUBQ PRN ×2 (13:28→18:49)
--- NOTE | 2018-02-09 16:15 | Progress Note ---
DATE: 02/09/2018 ACUTE PAIN MANAGEMENT PHYSICIAN PROGRESS NOTE MEDICATIONS: Medication administration record reviewed. Medications include Chloraseptic spray, Protonix, oxycodone, Zofran, milk of magnesia, magnesium citrate, Dilaudid, Neurontin, Benadryl, Catapres, Xanax, Mylanta, and Fioricet. LABORATORY DATA: Laboratory studies from yesterday, 02/08/2018 shows white count 9, hematocrit 38, and platelets 184,000. Sodium 140, potassium 3.8, chloride 105, bicarb 29, BUN 16, creatinine 1.3, glucose 103, and calcium 8.4. Vital signs, afebrile, current temperature and T-max is 99.5, pulse 90, respirations 18, blood pressure 114/68, and oxygen saturation 97% on room air. I saw the patient at the bedside and discussed the case with the overnight nurse along with the day nurse, Adriana SALINAS. Overnight, the patient did receive multiple p.r.n. medications to help wean him off the ENGINEERING GROUP LEADER unit. The patient feels comfortable to discontinue the ENGINEERING GROUP LEADER. I will also Hep-Lock his IV fluids in order to encourage frequent ambulation. He has been tolerating a scheduled OxyContin controlled release 10 mg, which I will continue at the current dosing of q.8 hours. The 15 mg oral dose of oxycodone instant release has been working well additionally. I will continue the subcutaneous Dilaudid for severe breakthrough pain. The patient is advancing his diet. He is passing positive flatus. The patient does have multiple p.r.n. laxatives including milk of magnesia and magnesium citrate available. Hemovac drain remains in place. I will defer management to Dr. Edmond at this time. The patient remains on b.i.d. Neurontin. This dosing seems adequate as well. I have asked the nurse to dose the Xanax frequently. We will continue the current supportive care and continue advancing the patient's ambulation as tolerated. The remains at the bedside for good social support. I will defer discharge plan to the surgeon, Dr. Edmond. Hiram Barber M.D. DR: PEYTON JOB#: [id number] CC:
[2018-02-09 20:00] VITALS: BP 126/66
[2018-02-10] VITALS: BP 122/62
[2018-02-10] MEDS: oxyCONTIN 10mg tab ORAL SCH ×2 (00:29→08:46)
[2018-02-10] MEDS: Hydromorphone 0.5mg/0.5ml inj SUBQ PRN (04:32)
[2018-02-10 06:25] LABS: BASOPHILS % (AUTO) 0.4 % (0.0-2.0); EOSINOPHILS % (AUTO) 1.6 % (0.0-3.0); HEMATOCRIT 35.4 % (42.0-52.0); HEMOGLOBIN 11.7 G/DL (14.2-18.0); MEAN CORPUSCULAR VOLUME 89 FL (80-99); MONOCYTES % (AUTO) 9.1 % (1.0-10.0); NEUTROPHILS % (AUTO) 72.9 % (45.0-75.0); PLATELET COUNT 161 K/UL (150-450); RED BLOOD COUNT 3.98 M/UL (4.70-6.10); RED CELL DISTRIBUTION WIDTH 11.6 % (11.6-14.8); WHITE BLOOD COUNT 9.7 K/UL (4.8-10.8)
[2018-02-10 08:00] VITALS: BP 115/72
[2018-02-10] MEDS: oxyCODONE 15mg IR tab ORAL PRN (12:22)
--- NOTE | 2018-02-14 13:13 | Discharge Summary ---
Discharge Summary Hospital Course Date of Admission Feb 07, 2018 at 05:29 Date of Discharge Feb 10, 2018 at 14:15 Admitting Diagnosis L2-L3 and L3-4 spinal stenosis. 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 Posterior spinal fusion, L3-L4. 2. Bilateral [id number] at L2 and superior portion of L3. 3. Bilateral redo L3-L4 laminectomy. 4. Pedicle screw fixation, L3-L4, left side and L3-L5, right side (L4 pedicle screw was cortically breached medially, and therefore, it was aborted). 5. Removal of hardware at L4, L5 and S1. 6. Inspection of fusion L4, L5 and S1. 7. Use of fluoroscopy. 8. Neurodiagnostic monitoring with pedicle screw stimulation. 9. Use of operating microscope. 1. Far lateral extraforaminal interbody fusion L3-L4. 2. Placement of structural PEEK cage. 3. Use of BMP. 4. Use of allograft putty. 5. Neurodiagnostic monitoring. 6. Use of fluoroscopy. s/p 02/07/[address] Juan Antonio Bella (vascular approach) 1. Muscle sparing extraperitoneal approach for extreme lateral interbody fusion of L3-L4 (1 interspace). 2. Transpsoas exposure of the lateral surface of the spine at L3-L4. Hospital Course staged procedure with anterior and posterior approach pain management, pain specialist followed initially STATISTICAL DEVELOPER subsequently STATISTICAL DEVELOPER discontinued pain was managed with oral analgesics per pain specialist recommendation neurovascular intact bed brace on fall precaution ambulated with PT /OT IS while in the bed, encouraged to use safe for discharge initially with Hemovac, output closely monitored, Hemovac discontinued prior to discharge dressing clean , dry, and intact pain controlled tolerated diet , antiemetics prn, no nausea or vomiting voided freely bowel regimen instituted O2 HHN prn, resp status stable, no evidence of asthma exacerbation discharge instruction provided patient stable for discharge home with outpatient follow-up with surgeon as advised by surgeon FINAL DIAGNOSES Status post prior anterior posterior fusion, L4 through S1. L2-L3 and L3-4 spinal stenosis. 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 Status post prior laminectomy at multiple levels with laminal foraminotomies at L3-L4 and laminectomy at L4-L5 and L5-S1. s/p XLIF L3-4 s/p PSF L3-4, Instrumentation L3-4-5, removal of hardware L4-5-S1, Decompression L2-3-4 moderate obesity asthma opioid and benzodiazepine dependency chronic pain L spine work rebated injury Discharge Medications Continued Medications: Albuterol Sulfate* (Albuterol Sulfate Mdi*) 8.5 Gm Hfa.aer.ad 2 PUFF INH PRN, #1 INH 0 Refills (This prescription has been renewed) Alprazolam* (Xanax*) 1 Mg Tablet 1 TAB ORAL PRN, TAB 0 Refills (This prescription has been renewed) Eszopiclone (Lunesta) 1 Mg Tablet 1 MG ORAL BEDTIME PRN for Insomnia, TAB 0 Refills (This prescription has been renewed) Gabapentin* (Gabapentin*) 400 Mg Capsule 400 MG ORAL PRN, CAP 0 Refills (This prescription has been renewed) Methocarbamol* (Robaxin-750*) 750 Mg Tablet 750 MG PO PRN, #28 TAB 0 Refills (This prescription has been renewed) Montelukast Sodium* (Singulair*) 10 Mg Tablet 10 MG ORAL HS, TAB (This prescription has been renewed) Oxycodone Hcl Er* (Oxycontin*) 10 Mg Tab.er.12h 10 MG ORAL EVERY 12 HOURS, TAB (This prescription has been renewed) Discharge Condition Upon Discharge: stable Discharge Disposition Patient was discharged to Home (01) Discharge Instructions Discharge Instructions Special Instructions I have been assigned to complete a D/C Summary on this account. I was not involved in the patient management Jaylin Huff NP Feb 14, 2018 13:13
== END 2018-02-10 14:15 | disposition home or self-care (01) | DRG 454 ==
LOC: SDSOVERFLO 05:29 → 3E 22:06
PROC: 0SP304Z Removal of Internal Fixation Device from Lumbosacral Joint, Open Approach (ICD-10-PCS; principal; 2018-02-07 08:00)
PROC: 0SP004Z Removal of Internal Fixation Device from Lumbar Vertebral Joint, Open Approach (ICD-10-PCS; principal; 2018-02-07 08:00)
PROC: 0SG00A0 Fusion of Lumbar Vertebral Joint with Interbody Fusion Device, Anterior Approach, Anterior Column, Open Approach (ICD-10-PCS; principal; 2018-02-07 08:00)
PROC: 4A11X4G Monitoring of Peripheral Nervous Electrical Activity, Intraoperative, External Approach (ICD-10-PCS; principal; 2018-02-07 08:00)
PROC: 0SG00J1 Fusion of Lumbar Vertebral Joint with Synthetic Substitute, Posterior Approach, Posterior Column, Open Approach (ICD-10-PCS; principal; 2018-02-07 08:00)
DX: M51.16 Intervertebral disc disorders with radiculopathy, lumbar region (principal); F11.20 Opioid dependence, uncomplicated; F13.20 Sedative, hypnotic or anxiolytic dependence, uncomplicated; G89.18 Other acute postprocedural pain; J45.909 Unspecified asthma, uncomplicated; M79.603 Pain in arm, unspecified; E66.9 Obesity, unspecified; Z68.33 Body mass index [BMI] 33.0-33.9, adult; M48.061 Spinal stenosis, lumbar region without neurogenic claudication
CPT/HCPCS: 36415; 71046; 72020; 76001; 80048; 80053; 81003; 82962; 83735; 84100; 85025; 85610; 85730; 86850; 86900; 86901; 87081; 87086; 94003; 94150; J2250; J2405; J2710